=== PATIENT | female | born 1980 | race Caucasian/White ===

== ENCOUNTER 2017-08-04 00:34 | Emergency (ER) | payer OTHER ==
[2017-08-04] MEDS: ACETAMINOPHEN 325 MG TABLET. PO (02:41)
== END 2017-08-04 03:48 | disposition home or self-care (01) ==
LOC: ER 00:34
DX: S00.83XA Contusion of other part of head, initial encounter (principal); Z88.0 Allergy status to penicillin; Z88.5 Allergy status to narcotic agent; Y04.2XXA Assault by strike against or bumped into by another person, initial encounter; Y93.89 Activity, other specified; Y99.8 Other external cause status; Y92.89 Other specified places as the place of occurrence of the external cause
CPT/HCPCS: 70450; 70486; 99284-25

== ENCOUNTER 2017-10-01 06:49 | Emergency (ER) | payer OTHER ==
[2017-10-01 07:37] LABS: BILIRUBIN,URINE NEGATIVE (NEG); CLARITY,URINE CLEAR; COLOR,URINE YELLOW; GLUCOSE,URINE NEGATIVE (NEG); NITRITE,URINE POSITIVE (NEG); PROTEIN,URINE NEGATIVE (NEG-TRACE); UROBILINOGEN,URINE 0.2 mg/dL (0.2 mg/dL)
[2017-10-01 07:37] LABS: URINE HCG POC HCG NEGATIVE (Negative)
[2017-10-01] MEDS: 0.9 % SODIUM CHLORIDE 10 ML DISP.SYRIN. IV (07:49)
[2017-10-01] MEDS: KETOROLAC 30 MG/ML INJ. IV (07:50)
[2017-10-01] MEDS: IV NORMAL SALINE 1000ML BAG 1,000 ML IV (07:50)
[2017-10-01 07:57] LABS: ADD MAN DIFF? NO
[2017-10-01 08:09] LABS: BASO # 0.1 x10^3/uL (0.0-0.2); BASO % 1 % (0-3); EOS # 0.2 x10^3/uL (0.0-0.7); EOS % 1 % (0-3); HEMATOCRIT 33.4 % (36.0-47.0); HEMOGLOBIN 10.9 g/dL (12.0-15.5); LYMPH # 2.2 x10^3/uL (1.0-4.8); LYMPH % 16 % (24-48); MEAN CORPUSCULAR HEMOGLOBIN 24 pg (25-35); MEAN CORPUSCULAR HGB CONC 33 g/dL (31-37); MEAN CORPUSCULAR VOLUME 74 fL (79-100); MONO # 0.8 x10^3/uL (0.0-1.1); MONO % 6 % (0-9); NEUT # 10.4 x10^3uL (1.8-7.7); NEUT % 76 % (31-73); PLATELET COUNT 462 x10^3/uL (140-400); RED BLOOD COUNT 4.51 x10^6/uL (3.50-5.40); RED CELL DISTRIBUTION WIDTH 16.7 % (11.5-14.5); WHITE BLOOD COUNT 13.6 x10^3/uL (4.0-11.0)
[2017-10-01 08:11] LABS: ANION GAP 9 (6-14); BLOOD UREA NITROGEN 11 mg/dL (7-20); BUN/CREATININE RATIO 14 (6-20); CALCIUM 9.1 mg/dL (8.5-10.1); CARBON DIOXIDE 29 mmol/L (21-32); CHLORIDE 106 mmol/L (98-107); CREATININE 0.8 mg/dL (0.6-1.0); GFR 80.7; GLUCOSE 115 mg/dL (70-99); POTASSIUM 3.9 mmol/L (3.5-5.1); SODIUM 144 mmol/L (136-145)
[2017-10-01] MEDS: diphenhydrAMINE 50 MG/ML VIAL IVP (08:16)
[2017-10-01 08:17] LABS: ALBUMIN 3.8 g/dL (3.4-5.0); ALBUMIN/GLOBULIN RATIO 1.1 (1.0-1.7); ALK PHOS 83 U/L (46-116); ALT (SGPT) 16 U/L (14-59); AST (SGOT) 14 U/L (15-37); LIPASE 129 U/L (73-393); TOTAL BILIRUBIN 0.2 mg/dL (0.2-1.0); TOTAL PROTEIN 7.4 g/dL (6.4-8.2)
[2017-10-01] MEDS: fentaNYL PF VIAL 100 MCG/2 ML VIAL IV (08:29)
[2017-10-01] MEDS ORDERED: CONTRAST GIVEN. MC (08:30)
[2017-10-01] MEDS: IOHEXOL 300 MG/ML 100ML VIAL. IV (08:40)
[2017-10-01 08:42] LABS: BACTERIA,URINE 0 /HPF (0-FEW); RBC,URINE 0 /HPF (0-2); WBC,URINE 0 /HPF (0-4)
== END 2017-10-01 10:04 | disposition home or self-care (01) ==
LOC: ER 06:49
DX: K59.00 Constipation, unspecified (principal); R00.0 Tachycardia, unspecified; F17.210 Nicotine dependence, cigarettes, uncomplicated; Z71.6 Tobacco abuse counseling; Z88.0 Allergy status to penicillin; Z88.5 Allergy status to narcotic agent
CPT/HCPCS: 36415; 74177; 76830; 76856; 80053; 81001; 81025; 83690; 85025; 87086; 96374; 96375; 99285-25; J1200; J1885; J3010; J7030; Q9967

== ENCOUNTER 2019-02-24 05:30 | Emergency (ER) | payer SELFPAY ==
[~2019-02-24] VITALS: Ht 165.1 cm; Wt 59.0 kg
[~2019-02-24 05:30] MED LIST: MAGN296S9 PO; ONDA4TAB10 SL; OXYC1TAB15 PO; TRAM-48 PO
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
[2019-02-24] MEDS ORDERED: IV NORMAL SALINE 1000ML BAG 1,000 ML IV ONE (06:00)
--- NOTE | 2019-02-24 06:09 | EKG ---
[facility] [address] [place] [address] Test Date: 2019-02-24 Test Time: 05:38:59 Pat Name: VICKI RICHARDSON Department: Room: Gender: F [employer] Plate [employer]: : 1980 Requested By: CHRISTIANA GUNDERSON Order Number: [id number] Reading MD: Measurements Intervals [place] Rate: 137 P: 54 [place]: 116 QRS: 18 QRSD: 84 T: 17 QT: 292 QTc: 442 Interpretive Statements SINUS TACHYCARDIA QRS(T) CONTOUR ABNORMALITY CONSIDER ANTEROLATERAL MYOCARDIAL DAMAGE POSSIBLY ABNORMAL ECG RI6.01 No previous ECG available for comparison
[2019-02-24 06:42] LABS: BASO # 0.1 x10^3/uL (0.0-0.2); BASO % 1 % (0-3); EOS # 0.3 x10^3/uL (0.0-0.7); EOS % 4 % (0-3); HEMATOCRIT 39.5 % (36.0-47.0); HEMOGLOBIN 13.2 g/dL (12.0-15.5); LYMPH # 2.5 x10^3/uL (1.0-4.8); LYMPH % 31 % (24-48); MEAN CORPUSCULAR HEMOGLOBIN 29 pg (25-35); MEAN CORPUSCULAR HGB CONC 33 g/dL (31-37); MEAN CORPUSCULAR VOLUME 86 fL (79-100); MONO # 0.5 x10^3/uL (0.0-1.1); MONO % 6 % (0-9); NEUT # 4.6 x10^3/uL (1.8-7.7); NEUT % 58 % (31-73); PLATELET COUNT 284 x10^3/uL (140-400); RED BLOOD COUNT 4.58 x10^6/uL (3.50-5.40); WHITE BLOOD COUNT 7.9 x10^3/uL (4.0-11.0)
[2019-02-24] MEDS ORDERED: KETOROLAC 30 MG/ML VIAL. IVP ONE (07:00)
[2019-02-24 07:12] LABS: CALCIUM 8.8 mg/dL (8.5-10.1); CREATININE 0.8 mg/dL (0.6-1.0); GFR 79.9; POTASSIUM 3.3 mmol/L (3.5-5.1)
[2019-02-24 07:15] LABS: C-REACTIVE PROTEIN 1.6 mg/L (0-3.3)
[2019-02-24 07:16] LABS: ALBUMIN 3.4 g/dL (3.4-5.0); ALBUMIN/GLOBULIN RATIO 0.9 (1.0-1.7); TOTAL BILIRUBIN 0.1 mg/dL (0.2-1.0)
[2019-02-24 07:24] LABS: BILIRUBIN,URINE NEGATIVE (NEG); CLARITY,URINE CLEAR; COLOR,URINE YELLOW; NITRITE,URINE NEGATIVE (NEG); PH,URINE 7.5; PROTEIN,URINE NEGATIVE (NEG-TRACE); UROBILINOGEN,URINE 0.2 mg/dL (0.2 mg/dL)
[2019-02-24 07:31] LABS: BARBITURATES NEG (NEG); BENZODIAZEPINES NEG (NEG); CANNABINOIDS NEG (NEG); COCAINE NEG (NEG); METHADONE NEG (NEG); OPIATES POS (NEG); PHENCYCLIDINE NEG (NEG)
[2019-02-24 07:32] LABS: RBC,URINE RARE /HPF (0-2); WBC,URINE OCC /HPF (0-4)
[2019-02-24 07:33] LABS: AMPHETAMINE/METHAMPHETAMINE POS (NEG); BACTERIA,URINE 0 /HPF (0-FEW); SQUAMOUS EPITHELIAL CELL,UR MOD /LPF
--- NOTE | 2019-02-24 07:42 | RAD ---
Single view chest dated 02/24/2019. No comparison available. CLINICAL INDICATION: Chest pain. FINDINGS: Single upright portable exam performed. Heart and mediastinal contours within normal limits. Lungs are somewhat hypoinflated but otherwise clear. No consolidation or pleural effusion. No pneumothorax. IMPRESSION: No acute radiographic abnormality. Electronically signed by: Octavio Kim MD (02/24/2019 7:39 AM) [id number]
--- NOTE | 2019-02-24 08:30 | RAD ---
CT STUDY OF THE ABDOMEN AND PELVIS WITHOUT CONTRAST CLINICAL INDICATIONS: Right lower quadrant abdominal pain. TECHNIQUE: Noncontrast helical CT scanning of the abdomen and pelvis was performed. Without contrast, the sensitivity to detect organ pathology and GI tract pathology is decreased. PQRS compliance Statement One or more of the following individualized dose reduction techniques were utilized for this study: 1. Automated exposure control 2. Adjustment of the mA and/or kV according to patient size 3. Use of iterative reconstruction technique COMPARISON: October 01, 2017. FINDINGS: Subcentimeter cyst of the anterior aspect of the medial segment of the left lobe liver is seen and is unchanged. Spleen is not enlarged. Pancreas is unremarkable on this noncontrast study without focal enlargement. The gallbladder is small and contracted. This is a chronic finding. No extrahepatic biliary ductal dilatation is seen. No adrenal mass is evident. No hydronephrosis or hydroureter or urinary tract stone is evident. Calcified phleboliths of the left side of the anatomic pelvis are seen. Urinary bladder is not distended. No dominant ovarian cyst or mass is evident. No focal aneurysmal dilatation of the abdominal aorta is seen. No enlarged abdominal or pelvic lymphadenopathy is evident. No obstructive bowel pattern is evident. The appendix is is normal and contains residual contrast density. The terminal ileum is unremarkable. No free air or free fluid or mesenteric edema is evident. No lung base consolidation is evident. No lytic process is seen. IMPRESSION: No acute abnormality. Chronic contraction of the gallbladder. Electronically signed by: Eduardo Davison MD (02/24/2019 8:27 AM) [facility]
[2019-02-24] MEDS ORDERED: POTASSIUM CHLORIDE 20 MEQ TABLET.ER. PO ONE (08:45)
[2019-02-24] MEDS ORDERED: NAPR-683 PO (08:58)
[2019-02-24 09:00] VITALS: BP 141/72
== END 2019-02-24 09:00 | disposition home or self-care (01) ==
LOC: ER 05:30
DX: R00.2 Palpitations (principal); R07.89 Other chest pain; R10.31 Right lower quadrant pain; N80.9 Endometriosis, unspecified; F41.9 Anxiety disorder, unspecified; F15.10 Other stimulant abuse, uncomplicated; F14.10 Cocaine abuse, uncomplicated; F11.90 Opioid use, unspecified, uncomplicated; Z88.0 Allergy status to penicillin; Z88.5 Allergy status to narcotic agent
CPT/HCPCS: 36415; 71045; 74176; 80053; 80307; 81001; 81025; 82550; 83880; 84484; 85025; 85651; 86140; 93005; 96374; 99285; G0480; J1885; J7030

== ENCOUNTER 2019-03-29 02:42 | Emergency (ER) | payer SELFPAY ==
[~2019-03-29] VITALS: Ht 165.1 cm; Wt 59.0 kg
[~2019-03-29 02:42] MED LIST changes: +MAGN296S68 PO; -MAGN296S9 PO; +NAPR-683 PO
[2019-03-29] MEDS ORDERED: ACETAMINOPHEN 500 MG TABLET PO ONE (04:30)
[2019-03-29 04:42] LABS: BILIRUBIN,URINE NEGATIVE (NEG); CLARITY,URINE CLOUDY; COLOR,URINE YELLOW; NITRITE,URINE NEGATIVE (NEG); PH,URINE 5.5; PROTEIN,URINE NEGATIVE (NEG-TRACE); UROBILINOGEN,URINE 0.2 mg/dL (0.2 mg/dL)
[2019-03-29 04:49] LABS: BARBITURATES NEG (NEG); BENZODIAZEPINES NEG (NEG); CANNABINOIDS NEG (NEG); COCAINE NEG (NEG); METHADONE NEG (NEG); OPIATES POS (NEG); PHENCYCLIDINE NEG (NEG)
[2019-03-29 04:51] LABS: AMPHETAMINE/METHAMPHETAMINE POS (NEG)
[2019-03-29 04:52] LABS: BACTERIA,URINE FEW /HPF (0-FEW); RBC,URINE RARE /HPF (0-2); SQUAMOUS EPITHELIAL CELL,UR MANY /LPF
[2019-03-29] MEDS ORDERED: silver sulfADIAZINE 1% CREAM 25GM TUBE. TP ONE (05:00)
[2019-03-29] MEDS ORDERED: DIPHTH,PERTUSS(ACELL),TET TOX 0.5 ML DISP.SYRIN. VAX IM ONE (05:00)
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
[2019-03-29] MEDS ORDERED: MORPHINE SULFATE 4 MG/ML VIAL. IM ONE (06:00)
[2019-03-29] MEDS ORDERED: TRAM50TA PO (06:18)
[2019-03-29 06:45] VITALS: BP 144/75
== END 2019-03-29 07:23 | disposition home or self-care (01) ==
LOC: EEVIPCON 02:42 → ER 02:42
DX: S00.81XA Abrasion of other part of head, initial encounter (principal); M54.5 Low back pain; R07.81 Pleurodynia; R51 Headache; N80.9 Endometriosis, unspecified; F14.90 Cocaine use, unspecified, uncomplicated; F13.90 Sedative, hypnotic, or anxiolytic use, unspecified, uncomplicated; Z88.1 Allergy status to other antibiotic agents; Z88.5 Allergy status to narcotic agent; Y08.89XA Assault by other specified means, initial encounter; Y93.89 Activity, other specified; Y92.89 Other specified places as the place of occurrence of the external cause; Y99.8 Other external cause status
CPT/HCPCS: 70450; 70486; 71250; 72100; 72125; 80307; 81001; 81025; 90471; 90715; 96372; 99285; J2270

== ENCOUNTER 2019-07-23 02:51 | Emergency (ER) | payer SELFPAY ==
[~2019-07-23] VITALS: Ht 162.6 cm; Wt 63.6 kg
[~2019-07-23 02:51] MED LIST changes: +TRAM50TA PO
[2019-07-23] MEDS: IV NORMAL SALINE 1000ML BAG 1,000 ML IV ONE (03:55)
[2019-07-23 03:59] LABS: BASO # 0.1 x10^3/uL (0.0-0.2); BASO % 1 % (0-3); EOS # 0.1 x10^3/uL (0.0-0.7); EOS % 2 % (0-3); HEMOGLOBIN 12.5 g/dL (12.0-15.5); LYMPH # 1.9 x10^3/uL (1.0-4.8); LYMPH % 21 % (24-48); MEAN CORPUSCULAR HEMOGLOBIN 28 pg (25-35); MEAN CORPUSCULAR HGB CONC 34 g/dL (31-37); MEAN CORPUSCULAR VOLUME 84 fL (79-100); MONO # 0.6 x10^3/uL (0.0-1.1); MONO % 7 % (0-9); NEUT # 6.1 x10^3/uL (1.8-7.7); NEUT % 69 % (31-73); PLATELET COUNT 281 x10^3/uL (140-400); RED BLOOD COUNT 4.42 x10^6/uL (3.50-5.40); RED CELL DISTRIBUTION WIDTH 14.9 % (11.5-14.5); WHITE BLOOD COUNT 8.8 x10^3/uL (4.0-11.0)
[2019-07-23 04:04] LABS: BILIRUBIN,URINE NEGATIVE (NEG); CLARITY,URINE CLEAR; COLOR,URINE YELLOW; NITRITE,URINE NEGATIVE (NEG); PH,URINE 6.5 (<5.0-8.0); PROTEIN,URINE NEGATIVE (NEG-TRACE); UROBILINOGEN,URINE 0.2 mg/dL (0.2 mg/dL)
[2019-07-23 04:09] LABS: CALCIUM 9.1 mg/dL (8.5-10.1); CREATININE 0.8 mg/dL (0.6-1.0); GFR 79.9; POTASSIUM 3.8 mmol/L (3.5-5.1)
[2019-07-23 04:10] LABS: SQUAMOUS EPITHELIAL CELL,UR OCC /LPF
[2019-07-23 04:11] LABS: BACTERIA,URINE 0 /HPF (0-FEW); RBC,URINE RARE /HPF (0-2); WBC,URINE 0 /HPF (0-4)
[2019-07-23 04:15] LABS: ALBUMIN 3.7 g/dL (3.4-5.0); TOTAL BILIRUBIN 0.3 mg/dL (0.2-1.0); TOTAL PROTEIN 7.5 g/dL (6.4-8.2)
[2019-07-23 04:24] LABS: C-REACTIVE PROTEIN 1.2 mg/L (0-3.3)
--- NOTE | 2019-07-23 04:27 | RAD ---
Study: CR CHEST AP ONLY Indication: Swelling. Shortness of breath. Comparison: 02/24/2019 Findings: Haziness at the periphery of both lower lungs favored secondary to overlying breast tissue. A similar pattern was present on the comparison. No newly seen airspace infiltrate. No layering effusion or pneumothorax. No overt central vascular congestion. Within normal limits size of the cardiomediastinal silhouette. Impression: No acute radiographic abnormality of the chest. Electronically signed by: BROCK NOVA MD (07/23/2019 4:24 AM) [id number]
--- NOTE | 2019-07-23 04:47 | RAD ---
STUDY: US VENOUS LOWER EXTREMITY LEFT INDICATION: Lower extremity swelling. Shortness of breath. TECHNIQUE: Color-flow and pulsed wave duplex ultrasound with compression of venous structures of the left lower extremity. COMPARISON: None. FINDINGS: Duplex ultrasound with compression of the deep venous structures of the left lower extremity from the common femoral vein through the popliteal vein is negative for DVT. The posterior tibial and peroneal veins are segmentally visualized and patent where seen. Normal venous waveforms and augmentation are noted throughout. IMPRESSION: No deep venous thrombosis seen throughout the left lower extremity. Electronically signed by: BROCK NOVA MD (07/23/2019 4:44 AM) [id number]
--- NOTE | 2019-07-23 05:26 | PHYS DOC ---
Past Medical History Past Medical History: Endometriosis, Other Additional Past Medical Histor: MULTI DRUG ABUSE - SMOKING AND IV DRUG ABUSE Past Surgical History: No Surgical History Smoking Status: Current Every Day Smoker Alcohol Use: Occasionally Drug Use: Amphetamine, Cocaine, Heroin General Adult EDM: Chief Complaint: SHORTNESS OF BREATH HPI: HPI: Patient is a 38 year old female who presents with a past medical history of heroin and methamphetamine abuse who presents to the emergency room with various complaints. She states that she has had shortness of breath for the last week which got worse during an argument with her earlier this evening. She noticed swelling in her leg over the last 2 weeks. She also has a spot on her leg where she missed injecting that is swollen. She denies any fevers, chills, sweats, cough. She has had some rhinorrhea and fatigue. She states that she does not typically leave the house without her is constantly leaving the home. She is concerned about possible coronavirus. She has no history of heart failure. She does have a history of asthma. Review of Systems: Review of Systems: General: Denies fever, chills, sweats, fatigue Eyes: Denies drainage, blurred vision HENT: Denies rhinorrhea, sore throat Respiratory: Denies cough, wheezing reports shortness of breath Cardiac: Denies palpitations, chest pain reports leg swelling GI: Denies abdominal pain, N/V MSK: Denies back pain, neck pain Skin: Denies rash, jaundice Neuro: Denies headache, dizziness Psychiatric: Denies SI/HI Heart Score: Risk Factors: Risk Factors: DM, Current or recent (<one month) smoker, HTN, HLP, family history of CAD, obesity. Risk Scores: Score 0 - 3: 2.5% MACE over next 6 weeks - Discharge Home Score 4 - 6: 20.3% MACE over next 6 weeks - Admit for Clinical Observation Score 7 - 10: 72.7% MACE over next 6 weeks - Early Invasive Strategies Current Medications: Current Medications Medications (Trade) Dose Ordered Sig/Chuy Start Time Stop Time Status Last Admin Dose Admin Sodium Chloride 1,000 ml @ 0 mls/hr 1X ONCE 07/23/19 03:30 07/23/19 03:34 DC 07/23/19 03:55 1,000 MLS/HR Allergies: Allergies: Allergies Coded Allergies Type Severity Reaction Last Updated Verified Penicillins Allergy Intermediate 08/04/17 Yes hydrocodone Allergy Intermediate 08/04/17 Yes Physical Exam: PE: Constitutional: Well developed, well nourished, Cooperative, NAD, sleepy, disheveled HEENT: Normocephalic, atraumatic, oropharynx moist, EOMI, PERRL, no drainage from eyes, normal conjunctiva Neck: Supple, normal range of motion, no stridor Cardiovascular: Tachycardic, 2+ radial pulses bilaterally, bilateral 1+ pitting edema Respiratory: CTA bilaterally, no respiratory distress, no wheezing/crackles Abdomen: Soft, nontender, nondistended, no masses Skin: Warm, dry, intact, 2x3 cm area of erythema and induration without fluctuance on the right inner thigh Extremities: No obvious deformities Neurologic: Alert and Oriented x3, motor and sensory function grossly normal, no focal deficits Psychologic: Normal affect, normal judgment, normal mood. No SI/HI Current Patient Data: Labs: Laboratory Tests Test 07/23/19 03:50 07/23/19 03:55 07/23/19 03:59 White Blood Count 8.8 x10^3/uL (4.0-11.0) Red Blood Count 4.42 x10^6/uL (3.50-5.40) Hemoglobin 12.5 g/dL (12.0-15.5) Hematocrit 37.0 % (36.0-47.0) Mean Corpuscular Volume 84 fL (79-100) Mean Corpuscular Hemoglobin 28 pg (25-35) Mean Corpuscular Hemoglobin Concent 34 g/dL (31-37) Red Cell Distribution Width 14.9 % (11.5-14.5) H Platelet Count 281 x10^3/uL (140-400) Neutrophils (%) (Auto) 69 % (31-73) Lymphocytes (%) (Auto) 21 % (24-48) L Monocytes (%) (Auto) 7 % (0-9) Eosinophils (%) (Auto) 2 % (0-3) Basophils (%) (Auto) 1 % (0-3) Neutrophils # (Auto) 6.1 x10^3/uL (1.8-7.7) Lymphocytes # (Auto) 1.9 x10^3/uL (1.0-4.8) Monocytes # (Auto) 0.6 x10^3/uL (0.0-1.1) Eosinophils # (Auto) 0.1 x10^3/uL (0.0-0.7) Basophils # (Auto) 0.1 x10^3/uL (0.0-0.2) D-Dimer (Lindy) < 0.27 ug/mlFEU Sodium Level 141 mmol/L (136-145) Potassium Level 3.8 mmol/L (3.5-5.1) Chloride Level 103 mmol/L (98-107) Carbon Dioxide Level 30 mmol/L (21-32) Anion Gap 8 (6-14) Blood Urea Nitrogen 17 mg/dL (7-20) Creatinine 0.8 mg/dL (0.6-1.0) Estimated GFR (Cockcroft-Gault) 79.9 BUN/Creatinine Ratio 21 (6-20) H Glucose Level 92 mg/dL (70-99) Calcium Level 9.1 mg/dL (8.5-10.1) Total Bilirubin 0.3 mg/dL (0.2-1.0) Aspartate Amino Transferase (AST) 40 U/L (15-37) H Alanine Aminotransferase (ALT) 75 U/L (14-59) H Alkaline Phosphatase 63 U/L (46-116) Lactate Dehydrogenase 185 U/L (81-234) Troponin I Quantitative < 0.017 ng/mL (0.000-0.055) C-Reactive Protein, Quantitative 1.2 mg/L (0-3.3) TP-Evs-L-Type Natriuretic Peptide 31 pg/mL (0-124) Total Protein 7.5 g/dL (6.4-8.2) Albumin 3.7 g/dL (3.4-5.0) Albumin/Globulin Ratio 1.0 (1.0-1.7) Urine Collection Type U cath Urine Color Yellow Urine Clarity Clear Urine pH 6.5 (<5.0-8.0) Urine Specific [place] 1.020 (1.000-1.030) Urine Protein Negative mg/dL (NEG-TRACE) Urine Glucose (UA) Negative mg/dL (NEG) Urine Ketones (Stick) Negative mg/dL (NEG) Urine Blood Negative (NEG) Urine Nitrite Negative (NEG) Urine Bilirubin Negative (NEG) Urine Urobilinogen Dipstick 0.2 mg/dL (0.2 mg/dL) Urine Leukocyte Esterase Negative (NEG) Urine RBC Rare /HPF (0-2) Urine WBC 0 /HPF (0-4) Urine Squamous Epithelial Cells Occ /LPF Urine Bacteria 0 /HPF (0-FEW) Urine Mucus Mod /LPF POC Urine HCG, Qualitative Hcg negative (Negative) Laboratory Tests 07/23/19 03:50 Laboratory Tests 07/23/19 03:50 Vital Signs: Vital Signs Date Time Temp Pulse Resp B/P (MAP) Pulse Ox O2 Delivery O2 Flow Rate FiO2 07/23/19 03:00 97.8 96 16 132/68 (89) 99 Room Air 97.8 EKG: EKG: [] Radiology/Procedures: Radiology/Procedures: [] Course & Med Decision Making: Course & Med Decision Making Pertinent Labs and Imaging studies reviewed. (See chart for details) Patient is a 38-year-old female who presents the emergency room with multiple complaints. Work-up was done to evaluate her risk for novel coronavirus 19. Given patient's loss of taste, shortness of breath, fatigue it is possible that she does have coronavirus. She does have swelling that is worse in her left leg. Ultrasound was ordered and was negative. D-dimer was negative. She does have cellulitis on her right inner thigh which will be treated with antibiotics. Risk stratifying work-up was ordered including chest x-ray, d-dimer, CPK, CRP, LDH, troponin, ferritin, CBC, CMP. Due to concern of COVID-19 I have discussed the importance of quarantining with the patient. I have discussed with them that they should avoid grocery stores, gas stations, pharmacies, work, friends/family's homes. I discussed with him that it is important that they do not expose themselves to anyone else for the next 14 days. Chest x-ray does not show infiltrates at this time and patient will not be treated with empiric antibiotics. I have discussed with the patient the course of the illness and we have discussed strict return precautions. At this time patient does not need admission as they are stable, however it is possible that they may get worse over the next few days and we have discussed the importance of coming back if they develop severe shortness of breath or any other symptoms that they are concerned about. Patient's test results and vitals while in the ED were fully reviewed and discussed with the patient. Patient is stable and at this time does not need admission to the hospital. We have discussed strict return precautions and the importance of following up with their Primary Care Physician. Patient stated understanding and was given an opportunity to ask any questions. Belindaon Disclaimer: Mari Disclaimer: This electronic medical record was generated, in whole or in part, using a voice recognition dictation system. Departure Departure Impression: Primary Impression: Cellulitis Additional Impressions: Suspected 2019 novel coronavirus infection Swelling of left lower extremity Heroin abuse Disposition: HOME, SELF-CARE Condition: GOOD Referrals: ROSALINDA BIGGS MD (PCP) Patient Instructions: Cellulitis, Tuok-xp-Jvel, Heroin Abuse and Withdrawal Additional Instructions: Thank you for visiting [facility]. We appreciate you trusting us with your care. If any additional problems come up please don't hesitate to return to visit us. Follow up with your primary care provider so they can plan additional care if needed and know about the problem that you had today. If symp toms worsen come back to the Emergency Department. Any concerning symptoms that start such as chest pain, shortness of air, weakness or numbness on one side of the body, running high fevers or any other concerning symptoms return to the ER. You have a viral syndrome which may include symptoms like muscle aches, fevers, chills, runny nose, cough, sneezing, sore throat, nausea, vomiting, or diarrhea. One of the potential viruses that you may have is SARS-CoV-2, the virus that causes COVID-19, also known as the Coronavirus. You are just as likely to have a different viral infection such as the common cold, flu, etc. Most patients with the Coronavirus have mild symptoms and recover on their own. Resting, staying hydrated, and sleep based on known cases can be helpful. As of todays visit, you are well enough to go home and treat your symptoms with oral fluids and over the counter medications. Coronavirus testing is not performed on most people with mild symptoms who are being discharged from the emergency department. If Coronavirus testing was performed today the results will not be available for possibly up to 3-4 days. If your result is positive you will be contacted. Please follow the following precautions at home: 1. Stay home except to get medical care. 2. As advised by the CDC, we recommend that you stay in your home and minimize contact with other people. We do not want you to spread the infection. 3. Those who are older or have significant medical issues may have more severe symptoms from this infection. We recommend self-isolation FOR AT LEAST 7 DAYS after your 1st day of symptoms. AFTER you feel better please wait AT LEAST ANOTHER WEEK before returning to regular activities and being around other people. 4. IF you become sicker and have difficulty breathing, chest pain, are unable to eat/drink, severe vomiting, diarrhea, or weakness you may need to return to the Emergency Department. 5. You should restrict activities outside of your home, except for getting medical care. DO NOT go to work, school, or public areas. Avoid using public transportation, ride sharing, or taxis. 6. Separate yourself from other people in your home. You should use a separate bathroom if possible. 7. Avoid sharing personal household items such as dishes, cups, eating utensils, towels, etc. 8. Clean all high touch surfaces every day (door knobs, counter tops, etc). Use a household cleaning spray or wipe per label instructions. 9. Clean your hands often. Wash your hands with soap and water for at least 20 seconds. 10. Cover your mouth and nose when you cough or sneeze. 11. Throw used tissues in the trash and immediately wash your hands. For additional resources please visit the CDC website or the [place] Department of Health ([phone]), you may also call 211 for further information. NERI CRUZ MD July 23, 2019 05:26
[2019-07-23] MEDS ORDERED: CLIN300C8 PO (05:27)
--- NOTE | 2019-07-23 05:58 | EKG ---
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
[2019-07-23 06:23] VITALS: BP 116/68
[2019-07-23] MEDS: FUROSEMIDE 40 MG TABLET. PO ONE (06:24)
== END 2019-07-23 06:28 | disposition home or self-care (01) ==
LOC: ER 02:51
DX: L03.115 Cellulitis of right lower limb (principal); Z20.828 Contact with and (suspected) exposure to other viral communicable diseases; F11.10 Opioid abuse, uncomplicated; F15.10 Other stimulant abuse, uncomplicated; F14.10 Cocaine abuse, uncomplicated; F17.200 Nicotine dependence, unspecified, uncomplicated; Z88.0 Allergy status to penicillin; Z88.5 Allergy status to narcotic agent
CPT/HCPCS: 36415; 71045; 80053; 81001; 81025; 83615; 83880; 84484; 85025; 85379; 86140; 87040; 93005; 93971; 99285; J7030

== ENCOUNTER 2019-09-07 01:08 | Emergency (ER) | payer SELFPAY ==
[~2019-09-07 01:08] MED LIST changes: +CLIN300C8 PO
== END 2019-09-07 01:47 | disposition left against medical advice (07) ==
LOC: ER 01:08
DX: F41.9 Anxiety disorder, unspecified (principal); R06.02 Shortness of breath; Z53.21 Procedure and treatment not carried out due to patient leaving prior to being seen by health care provider
CPT/HCPCS: 81025

== ENCOUNTER 2020-09-01 22:50 | Emergency (ER) | payer MEDICAID ==
[~2020-09-01] VITALS: Ht 157.5 cm; Wt 63.6 kg
[~2020-09-01 22:50] MED LIST changes: -CLIN300C8 PO; +CLIN300C9 PO
[2020-09-02] MEDS ORDERED: LIDOCAINE (700MG/PATCH) PATCH. TD SCH (02:35)
[2020-09-02 03:15] VITALS: BP 148/72
[2020-09-02] MEDS ORDERED: ACETAMINOPHEN 500 MG TABLET PO ONE (03:15)
--- NOTE | 2020-09-02 03:19 | RAD ---
CT HEAD AND C-SPINE WO History: Reason: Head and neck pain / Spl. Instructions: / History: Comparison: March 29, 2019 Technique: Noncontrast CT imaging was performed of the head and cervical spine. Coronal and sagittal reconstructions were performed. Exposure: One or more of the following individualized dose reduction techniques were utilized for thi s examination: 1. Automated exposure control 2. Adjustment of the mA and/or kV according to patient size 3. Use of iterative reconstruction technique. Findings: Head CT: No intracranial hemorrhage. No mass effect. No hydrocephalus. Extra-axial spaces are unrema rkable. Imaged orbits are unremarkable. Imaged paranasal sinuses and mastoid air cells are clear. No acute ca lvarial fracture. Cervical spine CT: Normal vertebral body height and alignment. No fracture. Mild degenerative disc changes. No high-grad e canal or neuroforaminal narrowing. Pulmonary emphysema. Impression: Head CT: 1. No acute intracranial abnormality. Cervical spine CT: 1. No acute fracture or subluxation of the cervical spine. Electronically signed by: Fox Jones DO (09/02/2020 3:17 AM) [facility]
--- NOTE | 2020-09-02 03:31 | RAD ---
CT THORACIC SPINE RECONSTRUCT, CT CHEST AND ABDOMEN WITHOUT CONTRAST History: Back pain. Trauma. Technique: CT of the chest and abdomen were performed without contrast. Coronal and sagittal reconstr uctions were performed. CT thoracic spine was obtained. Coronal and sagittal reconstructions were performed. Exposure: One or more of the following individualized dose reduction techniques were utilized for thi s examination: 1. Automated exposure control 2. Adjustment of the mA and/or kV according to patient size 3. Use of iterative reconstruction technique. Comparison: Chest CT March 29, 2019 Findings: Chest: No pathologic lymphadenopathy. No consolidation or pleural effusion. No pneumothorax. Scattere d linear atelectasis. Abdomen: The liver, spleen, adrenal glands, pancreas and gallbladder have unremarkable noncontrast ap pearance. No biliary ductal dilatation. No hydronephrosis. No renal calculi. Imaged bowel is unremark able. No pathologic lymphadenopathy. No ascites within the upper abdomen. Bones: No pathologic osseous lesions. Thoracic spine CT: Mild rightward curvature of the thoracic spine. Normal vertebral body height. No fracture. No high-gr jennifer canal or neuroforaminal narrowing. Impression: Chest CT: 1. No acute thoracic pathology. Abdomen CT: 1. No acute abdominal pathology. Thoracic spine CT: 1. No acute fracture or subluxation of the thoracic spine. Electronically signed by: Fox Jones DO (09/02/2020 3:29 AM) [facility]
--- NOTE | 2020-09-02 03:33 | RAD ---
XR SACRUM AND COCCYX 2+VIEWS History: Reason: fail on tailboneciocyx pain / Spl. Instructions: / History: Technique: 3 views of the coccyx and sacrum. Comparison: None. Findings: Normal alignment. Transitional lumbosacral anatomy. No acute fracture. Symmetric appearance of the sa croiliac joints. Impression: 1. No acute osseous abnormality. Electronically signed by: Fox Jones DO (09/02/2020 3:31 AM) [facility]
--- NOTE | 2020-09-02 05:12 | PHYS DOC ---
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 Patient states she was not wearing socks and fell down wooden steps. Is not under the influence of any alcohol or drugs. Is not on any anticoagulants. Reports she did not lose consciousness. No known history of prior head injury. States the ED delayed presentation due to progressive worsening pain. Reports most severe pain is over right flank and right mid back. Denies to myself, pain over tailbone, hips. History changes (reported sxs change) between triage, RN and myself. Review of Systems: Review of Systems: Constitutional: Denies fever or chills. [] Eyes: Denies change in visual acuity. [] HENT: Denies nasal congestion or sore throat. [] Respiratory: Denies cough or shortness of breath. [] Cardiovascular: Denies chest pain or edema. [] GI: Denies abdominal pain, nausea, vomiting, : Denies saddle anesthesia, urine or bowel retention or incontinence, vaginal bleeding Musculoskeletal: Denies joint deformity or joint swelling Integument: Denies rash or diaphoresis Neurologic: Denies focal weakness or sensory changes. [] Endocrine: Denies polyuria or polydipsia. [] Lymphatic: Denies swollen glands. [] Psychiatric: Denies depression or anxiety. [] Heart Score: C/O Chest Pain: No Risk Factors: Risk Factors: DM, Current or recent (<one month) smoker, HTN, HLP, family history of CAD, obesity. Risk Scores: Score 0 - 3: 2.5% MACE over next 6 weeks - Discharge Home Score 4 - 6: 20.3% MACE over next 6 weeks - Admit for Clinical Observation Score 7 - 10: 72.7% MACE over next 6 weeks - Early Invasive Strategies Current Medications: Current Medications Medications (Trade) Dose Ordered Sig/Chuy Start Time Stop Time Status Last Admin Dose Admin Acetaminophen (Tylenol) 1,000 mg 1X ONCE 09/02/20 03:15 09/02/20 03:18 DC Lidocaine (Lidoderm) 1 patch DAILY 09/02/20 02:35 09/02/20 03:11 1 PATCH Allergies: Allergies: Allergies Coded Allergies Type Severity Reaction Last Updated Verified Penicillins Allergy Intermediate 08/04/17 Yes hydrocodone Allergy Intermediate 08/04/17 Yes Physical Exam: PE: Constitutional: Nontoxic appearing, well nourished HENT: Normocephalic, atraumatic, Eyes: EOMI, conjunctiva normal, no discharge. Neck: Normal range of motion, supple, no midline step-off or reducible pain Cardiovascular: S1/2 present, regular rhythm Lungs & Thorax: Speaking in full sentences, bilateral equal chest rise, no tachypnea or increased work of breathing, no palpable subcutaneous emphysema or flail chest Abdomen: soft, no tenderness, no hip pain with pelvic rocking Skin: Warm, dry, no petechiae/contusions Back: Reports entire midline thoracic spinal tenderness with no step-offs, superficial skin abrasion over right CVA tenderness Extremities: no cyanosis, no lower extremity edema, moving all 4 extremities Neurologic: Alert and oriented X 3, normal motor function, normal sensory function, no focal deficits noted, steady ambulatory gait Psychologic: Affect normal, judgement normal, mood -rapid speech, appears overwhelmed Current Patient Data: Labs: Laboratory Tests Test 09/01/20 23:01 POC Urine HCG, Qualitative Hcg negative (Negative) Vital Signs: Vital Signs Date Time Temp Pulse Resp B/P (MAP) Pulse Ox O2 Delivery O2 Flow Rate FiO2 09/02/20 02:05 99.7 92 20 145/79 (101) 100 Room Air 99.7 EKG: EKG: [] Radiology/Procedures: Radiology/Procedures: []IMAGING REPORT Signed PATIENT: VICKI RICHARDSON ACCOUNT: [id number] : 1980 LOCATION: ER AGE: 39 SEX: F EXAM STATUS: REG ER ORD. PHYSICIAN: DARÍO LINDSAY DO REASON: neck pain PROCEDURE: CT HEAD AND CERVICAL SPINE WO CT HEAD AND C-SPINE WO History: Reason: Head and neck pain / Spl. Instructions: / History: Comparison: March 29, 2019 Technique: Noncontrast CT imaging was performed of the head and cervical spine. Coronal and sagittal reconstructions were performed. Exposure: One or more of the following individualized dose reduction techniques were utilized for this examination: 1. Automated exposure control 2. Adjustment of the mA and/or kV according to patient size 3. Use of iterative reconstruction technique. Findings: Head CT: No intracranial hemorrhage. No mass effect. No hydrocephalus. Extra- axial spaces are unremarkable. Imaged orbits are unremarkable. Imaged paranasal sinuses and mastoid air cells are clear. No acute calvarial fracture. Cervical spine CT: Normal vertebral body height and alignment. No fracture. Mild degenerative disc changes. No high-grade canal or neuroforaminal narrowing. Pulmonary emphysema. Impression: Head CT: 1. No acute intracranial abnormality. Cervical spine CT: 1. No acute fracture or subluxation of the cervical spine. Electronically signed by: Fox Jones DO (09/02/2020 3:17 AM) [facility] DICTATED and SIGNED BY: FOX JONES DO DATE: 09/02/20 [id number] IMAGING REPORT Signed PATIENT: VICKI RICHARDSON ACCOUNT: [id number] : 1980 LOCATION: ER AGE: 39 SEX: F EXAM STATUS: REG ER ORD. PHYSICIAN: DARÍO LINDSAY DO REASON: BACK pain PROCEDURE: CT CHEST ABDOMEN WO CONTRAST CT THORACIC SPINE RECONSTRUCT, CT CHEST AND ABDOMEN WITHOUT CONTRAST History: Back pain. Trauma. Technique: CT of the chest and abdomen were performed without contrast. Coronal and sagittal reconstructions were performed. CT thoracic spine was obtained. Coronal and sagittal reconstructions were performed. Exposure: One or more of the following individualized dose reduction techniques were utilized for this examination: 1. Automated exposure control 2. Adjustment of the mA and/or kV according to patient size 3. Use of iterative reconstruction technique. Comparison: Chest CT March 29, 2019 Findings: Chest: No pathologic lymphadenopathy. No consolidation or pleural effusion. No pneumothorax. Scattered linear atelectasis. Abdomen: The liver, spleen, adrenal glands, pancreas and gallbladder have unremarkable noncontrast appearance. No biliary ductal dilatation. No hydronephrosis. No renal calculi. Imaged bowel is unremarkable. No pathologic lymphadenopathy. No ascites within the upper abdomen. Bones: No pathologic osseous lesions. Thoracic spine CT: Mild rightward curvature of the thoracic spine. Normal vertebral body height. No fracture. No high-grade canal or neuroforaminal narrowing. Impression: Chest CT: 1. No acute thoracic pathology. Abdomen CT: 1. No acute abdominal pathology. Thoracic spine CT: 1. No acute fracture or subluxation of the thoracic spine. Electronically signed by: Fox Jones DO (09/02/2020 3:29 AM) [facility] DICTATED and SIGNED BY: FOX JONES DO DATE: 09/02/20 [id number] IMAGING REPORT Signed PATIENT: VICKI RICHARDSON ACCOUNT: [id number] : 1980 LOCATION: ER AGE: 39 SEX: F EXAM STATUS: REG ER ORD. PHYSICIAN: DARÍO LINDSAY DO REASON: BACK pain PROCEDURE: CT THORACIC SPINE RECONSTRUCT CT THORACIC SPINE RECONSTRUCT, CT CHEST AND ABDOMEN WITHOUT CONTRAST History: Back pain. Trauma. Technique: CT of the chest and abdomen were performed without contrast. Coronal and sagittal reconstructions were performed. CT thoracic spine was obtained. Coronal and sagittal reconstructions were performed. Exposure: One or more of the following individualized dose reduction techniques were utilized for this examination: 1. Automated exposure control 2. Adjustment of the mA and/or kV according to patient size 3. Use of iterative reconstruction technique. Comparison: Chest CT March 29, 2019 Findings: Chest: No pathologic lymphadenopathy. No consolidation or pleural effusion. No pneumothorax. Scattered linear atelectasis. Abdomen: The liver, spleen, adrenal glands, pancreas and gallbladder have unremarkable noncontrast appearance. No biliary ductal dilatation. No hydronephrosis. No renal calculi. Imaged bowel is unremarkable. No pathologic lymphadenopathy. No ascites within the upper abdomen. Bones: No pathologic osseous lesions. Thoracic spine CT: Mild rightward curvature of the thoracic spine. Normal vertebral body height. No fracture. No high-grade canal or neuroforaminal narrowing. Impression: Chest CT: 1. No acute thoracic pathology. Abdomen CT: 1. No acute abdominal pathology. Thoracic spine CT: 1. No acute fracture or subluxation of the thoracic spine. Electronically signed by: Fox Jones DO (09/02/2020 3:29 AM) [facility] DICTATED and SIGNED BY: FOX JONES DO DATE: 09/02/20 [id number] IMAGING REPORT Signed PATIENT: VICKI RICHARDSON ACCOUNT: [id number] : 1980 LOCATION: ER AGE: 39 SEX: F EXAM STATUS: REG ER ORD. PHYSICIAN: DARÍO LINDSAY DO REASON: fail on tailboneciocyx pain PROCEDURE: SACRUM & COCCYX 3V XR SACRUM AND COCCYX 2+VIEWS History: Reason: fail on tailboneciocyx pain / Spl. Instructions: / History: Technique: 3 views of the coccyx and sacrum. Comparison: None. Findings: Normal alignment. Transitional lumbosacral anatomy. No acute fracture. Symmetric appearance of the sacroiliac joints. Impression: 1. No acute osseous abnormality. Electronically signed by: Fox Jones DO (09/02/2020 3:31 AM) [facility] DICTATED and SIGNED BY: FOX JONES DO DATE: 09/02/20 [id number] 0 Course & Med Decision Making: Course & Med Decision Making Pertinent Labs and Imaging studies reviewed. (See chart for details) Concern for accidental mechanical fall (delayed presentation ED) with pain of multiple locations, no obvious focal exam findings of trauma, patient hemodynamically stable. Despite risk of radiation, patient says that her symptoms are severe and that she is in so much pain. Is requesting analgesia in the ED. Treated w/Tylenol & lidopatch. CT images with no obvious trauma, consistent with physical exam. Will recommend [id number] analgesia as needed for pain. Lidocaine patch given in ED. no midline neck pain on reevaluation. Will discharge home with strict ED return precautions were given for back pain, neurologic deficits, repeat head injury or syncope. Encouraged urgent outpatient follow-up with PMD for reevaluation. Life-threatening processes were considered but are low suspicion at this time, given history, physical exam and ED workup. Pt was educated on all prescription medications and adverse effects. All patient's questions were answered and pt was stable at time of discharge. Life/limb-threatening differential includes but is not limited to, intracranial hemorrhage, diffuse axonal injury, spinal cord syndrome, unstable cervical fracture or SCIWORA, fractures or joint dislocations, neurovascular injuries, organ injury or laceration, pneumothorax, pneumoperitoneum, pericardial tamponade, unstable pelvic fracture, compartment syndrome, flail chest or respiratory distress, burn injury or asphyxiation I spoken with the patient and her caregivers. I explained the patient's condition, diagnoses and treatment plan based on the information available to me at this time. I have answered the patient and her caregiver's questions and addressed any concerns. The patient and her caregivers have a good understanding of patient's diagnosis, condition and treatment plan as can be expected at this point. Vital signs have been stable. Patient's condition is stable and appropriate for discharge from the emergency department. Patient will pursue further outpatient evaluation with primary care physician or other designated or consulting physician as outlined in the discharge instructions. The patient and/or caregivers are agreeable to this plan of care and follow-up instructions have been explained in detail. The patient and/or caregivers have received these instructions in written form and have expressed an understanding of the discharge instructions. The patient and/or caregivers are aware that any significant change of condition or worsening of symptoms should prompt immediate return to this or the closest emergency department or call to 911. Mari Disclaimer: Dragnimisha Disclaimer: This electronic medical record was generated, in whole or in part, using a voice recognition dictation system. Departure Departure Impression: Primary Impression: Accidental fall Additional Impression: Blunt injury of back Disposition: 01 HOME / SELF CARE / HOMELESS Condition: STABLE Referrals: ROSALINDA BIGGS MD (PCP) Follow-up in the next 1 to 2 days for reevaluation Patient Instructions: Blunt Trauma, Fall Prevention and Home Safety Additional Instructions: EMERGENCY DEPARTMENT GENERAL DISCHARGE INSTRUCTIONS Thank you for coming to [facility] Emergency Department (ED) today and trusting us with you care. We trust that you had a positive experience in our Emergency Department. If you wish to speak to the department management, you may call the Director at [phone]. YOUR FOLLOW UP INSTRUCTIONS ARE FOLLOWS: 1. Do you have a private Doctor? If you do not have a private doctor, please ask for a resource list of physicians or clinics that may be able to assist you with follow up care. 2. The Emergency Physicain has interpreted your x-rays. The X-Ray specialist will also review them. If there is a change in the findings, you will be notified in 48 hours when at all possible. 3. A lab test or culture has been done, your results will be reviewed and you will be notified if you need a change in treatment. ADDITIONAL INSTRUCTIONS AND INFORMATION: 1. Your care today has been supervised by a physician who is specially trained in emergency care. Many problems require more than one evaluation for a complete diagnosis and treatment. We recommend that you schedule your follow up appointment as recommended to ensure complete treatment of you illness or injury. If you are unable to obtain follow up care and continue to have a problem, or if your condition worsens, we recommend that you return to the ED. 2. We are not able to safely determine your condition over the phone nor are we able to give sound medical advice over the phone. For these safety reasons, if you call for medical advice we will ask you to come to the ED for further evaluation. 3. If you have any questions regarding these discharge instructions please call the ED at [phone]. SAFETY INFORMATION: In the interest of safety, wellness, and injury prevention; we encourage you to wear your sealbelt, if you smoke; quite smoking, and we encourage family to use a protective helmet for bicycling and other sporting events that present an increased risk for head injury. IF YOUR SYMPTOMS WORSEN OR NEW SYMPTOMS DEVELOP, OR YOU HAVE CONCERNS ABOUT YOUR CONDITION; OR IF YOUR CONDITION WORSENS WHILE YOU ARE WAITING FOR YOUR FOLLOW UP APPOINTMENT; EITHER CONTACT YOUR PRIMARY CARE DOCTOR, THE PHYSICIAN WHOSE NAME AND NUMBER YOU WERE GIVEN, OR RETURN TO THE ED IMMEDIATELY. DARÍO RAMIREZ DO Sep 02, 2020 05:12
== END 2020-09-02 05:35 | disposition home or self-care (01) ==
LOC: ER 22:50
DX: M54.6 Pain in thoracic spine (principal); R10.11 Right upper quadrant pain; G89.11 Acute pain due to trauma; R51.9 Headache, unspecified; M54.2 Cervicalgia; I10 Essential (primary) hypertension; F17.200 Nicotine dependence, unspecified, uncomplicated; Z88.0 Allergy status to penicillin; Z88.5 Allergy status to narcotic agent; W18.39XA Other fall on same level, initial encounter; Y93.89 Activity, other specified; Y92.89 Other specified places as the place of occurrence of the external cause; Y99.8 Other external cause status
CPT/HCPCS: 70450; 71250; 72125; 72220; 74150; 81025; 99285-25